=== PATIENT | female | born 1970 | race Caucasian/White ===

== ENCOUNTER 2020-12-08 06:05 | Inpatient (IN) | payer BC ==
[~2020-12-08] VITALS: Ht 157.5 cm; Wt 61.0 kg
[~2020-12-08 06:05] MED LIST: IBUP-1984 PO; ONDA8TAB6 PO; PHEN-786 PO
[2020-12-08 06:41] LABS: URINE HCG NEGATIVE (NEG)
[2020-12-08 06:42] LABS: CLARITY,URINE CLOUDY (Clear); COLOR,URINE YELLOW (Yellow); GLUCOSE, URINE NEGATIVE (Neg); KETONES,URINE NEGATIVE (Neg); LEUKOCYTE ESTERASE ,URINE NEGATIVE (Neg); NITRITES, URINE NEGATIVE (Neg); OCCULT BLOOD,URINE NEGATIVE (Neg); PROTEIN,URINE NEGATIVE (Neg); UROBILINOGEN,URINE 0.2 E.U/dL (0.2-1.0)
[2020-12-08 06:45] LABS: UA COLLECTION TYPE NON-SPECIFIED
[2020-12-08 06:48] LABS: AMORPHOUS URATES 3+; BACTERIA,URINE FEW /HPF (Neg); HYALINE CASTS 0-3 /LPF (NEGATIVE); MUCUS STRANDS NONE SEEN /LPF (Neg); RBC,URINE 0-2 /HPF (0-2); SQUAMOUS EPITHELIAL CELL,UR FEW /LPF (FEW); WBC,URINE 0-4 /HPF (0-4)
[2020-12-08 07:10] LABS: BASOPHILS # (AUTO) 0.2 X10'3 (0-0.2); BASOPHILS % (AUTO) 0.9 % (0-1); EOSINOPHILS % (AUTO) 0.2 % (0-6); HEMATOCRIT 39.9 % (35.0-45.0); HEMOGLOBIN 13.5 g/dl (12.0-16.0); LYMPHOCYTES # (AUTO) 2.4 X10'3 (1.1-4.8); LYMPHOCYTES % (AUTO) 11.7 % (21-51); MEAN CORPUSCULAR HEMOGLOBIN 32.6 PG (27.0-31.0); MEAN CORPUSCULAR HGB CONC 33.9 g/dL (33.0-36.5); MEAN CORPUSCULAR VOLUME 96.3 FL (78-98); MEAN PLATELET VOLUME 8.3 FL (7.4-10.4); MONOCYTES # (AUTO) 1.2 X10'3 (0-0.9); MONOCYTES % (AUTO) 5.8 % (2-12); NEUTROPHILS # (AUTO) 16.3 X10'3 (1.8-7.7); NEUTROPHILS % (AUTO) 81.4 % (42-75); PLATELET COUNT 331 X10'3 (140-440); RED BLOOD COUNT 4.14 X10'6 (4.20-5.60); RED CELL DISTRIBUTION WIDTH 13.2 % (11.5-14.5); WHITE BLOOD COUNT 20.1 X10'3 (4.5-11.0)
[2020-12-08 07:27] LABS: ALANINE AMINOTRANSFERASE 26 U/L (12-78); ALBUMIN 3.5 G/DL (3.4-5.0); ALBUMIN/GLOBULIN RATIO 1.1 (1.1-1.5); ALKALINE PHOSPHATASE 66 IU/L (46-116); ANION GAP 8 (8-16); ASPARTATE AMINO TRANSFERASE 19 U/L (10-37); BILIRUBIN,TOTAL 0.6 MG/DL (0.1-1.0); BLOOD UREA NITROGEN 19 MG/DL (7-18); BUN/CREATININE RATIO 19.6 (6.6-38.0); CALCIUM 8.4 MG/DL (8.5-10.1); CHLORIDE 106 MMOL/L (99-107); CREATININE 0.97 MG/DL (0.40-0.90); GLUCOSE 90 MG/DL (70-104); LIPASE 120 U/L (73-393); POTASSIUM 3.7 MMOL/L (3.5-5.1); SODIUM 140 MMOL/L (135-145); TOTAL CARBON DIOXIDE 25.6 MMOL/L (24-32); TOTAL PROTEIN 6.8 G/DL (6.4-8.2); eGFR 60 ML/MIN
[2020-12-08 07:48] LABS: PLATELET ESTIMATE NORMAL; TOTAL CELLS COUNTED 100
[2020-12-08] MEDS ORDERED: morphine 4 MG/ML inj SYRINge IV ONE ×2 (09:10→09:45)
[2020-12-08] MEDS ORDERED: ondansetron/PF 4mg/2ml inj IV ONE (09:10)
[2020-12-08] MEDS ORDERED: normal saline 1000ML IV soln IVB ONE (09:10)
[2020-12-08] MEDS ORDERED: iohexol 300mg/ml 100ml inj. ONE ×2 (09:15→21:51)
[2020-12-08] MEDS ORDERED: magnesium Cl slow-release 64mg tablet PO PRN (11:05)
[2020-12-08] MEDS ORDERED: potassium Cl 20 mEq SR tablet PO PRN (11:05)
[2020-12-08] MEDS ORDERED: ondansetron/PF 4mg/2ml inj IV PRN (11:05)
[2020-12-08] MEDS ORDERED: magnesium 4gm in 100ml NS 100 ML IV PRN (11:05)
[2020-12-08] MEDS ORDERED: acetaminophen 650mg rectal suppository RC PRN (11:05)
[2020-12-08] MEDS ORDERED: diphenhydrAMINE 25mg capsule PO PRN (11:05)
[2020-12-08] MEDS ORDERED: potassium Cl 40MEQ/1/2NS 520ml 520 ML IV PRN ×2 (11:05)
[2020-12-08] MEDS ORDERED: magnesium hydroxide 30ml (MOM) UD suspension PO PRN (11:05)
[2020-12-08] MEDS ORDERED: magnesium 2GM in 50ml NS 50 ML IV PRN (11:05)
[2020-12-08] MEDS ORDERED: bisacodyl 10mg suppository rectal RC PRN (11:05)
[2020-12-08] MEDS ORDERED: acetaminophen 325mg tablet PO PRN ×2 (11:05)
[2020-12-08] MEDS ORDERED: mag hydrox/Alum hydrox/simeth 30ml oral suspension PO PRN (11:05)
[2020-12-08] MEDS ORDERED: ATOR10TA70 PO (11:32)
[2020-12-08] MEDS ORDERED: VALA500T41 PO (11:32)
[2020-12-08] MEDS ORDERED: GABA-530 PO ×2 (11:32)
[2020-12-08] MEDS: normal saline 1000ml 1,000 ML IV SCH ×2 (12:23→21:31)
[2020-12-08 12:30] VITALS: BP 121/56
--- NOTE | 2020-12-08 12:30 | NUR ---
Patient in room [facility]. I have received report from [facility] and had the opportunity to ask questions and assume patient care.
[2020-12-08] MEDS ORDERED: GABA300C PO ×2 (15:03)
[2020-12-08] MEDS: piperacillin/tazo 3.375gm/50ml 50 ML IV SCH (16:47)
[2020-12-08] MEDS: HYDROcodone/acetaminophen 10/325mg tab PO PRN (17:37)
[2020-12-08 18:00] VITALS: BP 98/47
--- NOTE | 2020-12-08 18:16 | NUR ---
Patient in room [facility] 349A. I have received report from LYNN Hebert and had the opportunity to ask questions and assume patient care.
--- NOTE | 2020-12-08 18:31 | NUR ---
Problems reprioritized. Patient report given, questions answered & plan of care reviewed with Shantal BAILEY.
[2020-12-08] MEDS: morphine 2 MG/ML inj. syringe IV PRN (19:29)
[2020-12-08] MEDS: heparin, porcine 5000 units/ml vial SQ SCH (19:37)
[2020-12-08] MEDS: K and/or MAG REPLACEMENT MC SCH (20:00)
[2020-12-08] MEDS ORDERED: piperacillin/tazo 4.5gm/100ml 100 ML IV SCH (20:00)
[2020-12-08] MEDS: gabapentin 300mg capsule PO SCH (21:30)
[2020-12-08] MEDS: HYDROmorphone 1 mg/ml syringe IV PRN (22:21)
[2020-12-08 23:20] VITALS: BP 93/44
[2020-12-08] MEDS ORDERED: LACTED IV ONE (23:25)
[2020-12-08] MEDS ORDERED: RINGERS IV ONE (23:25)
[2020-12-08] MEDS ORDERED: ringers solution, lacted 1,000 ML IV ONE (23:50)
[2020-12-09] MEDS: piperacillin/tazo 3.375gm/50ml 50 ML IV SCH ×3 (00:15→16:20)
[2020-12-09 00:30] VITALS: BP 118/68
[2020-12-09] MEDS: HYDROmorphone 1 mg/ml syringe IV PRN (04:23)
[2020-12-09 05:44] LABS: BASOPHILS # (AUTO) 0.1 X10'3 (0-0.2); BASOPHILS % (AUTO) 0.3 % (0-1); EOSINOPHILS % (AUTO) 0 % (0-6); HEMATOCRIT 38.1 % (35.0-45.0); HEMOGLOBIN 12.9 g/dl (12.0-16.0); LYMPHOCYTES # (AUTO) 1.8 X10'3 (1.1-4.8); LYMPHOCYTES % (AUTO) 10.5 % (21-51); MEAN CORPUSCULAR HEMOGLOBIN 32.4 PG (27.0-31.0); MEAN CORPUSCULAR HGB CONC 33.7 g/dL (33.0-36.5); MEAN PLATELET VOLUME 7.6 FL (7.4-10.4); MONOCYTES # (AUTO) 1.2 X10'3 (0-0.9); NEUTROPHILS # (AUTO) 14.2 X10'3 (1.8-7.7); NEUTROPHILS % (AUTO) 82.2 % (42-75); PLATELET COUNT 270 X10'3 (140-440); RED BLOOD COUNT 3.97 X10'6 (4.20-5.60); WHITE BLOOD COUNT 17.3 X10'3 (4.5-11.0)
[2020-12-09 05:59] LABS: ALANINE AMINOTRANSFERASE 19 U/L (12-78); ALBUMIN 2.7 G/DL (3.4-5.0); ALBUMIN/GLOBULIN RATIO 0.8 (1.1-1.5); ALKALINE PHOSPHATASE 57 IU/L (46-116); ANION GAP 9 (8-16); ASPARTATE AMINO TRANSFERASE 10 U/L (10-37); BILIRUBIN,TOTAL 1.3 MG/DL (0.1-1.0); BLOOD UREA NITROGEN 11 MG/DL (7-18); CALCIUM 7.8 MG/DL (8.5-10.1); CHLORIDE 103 MMOL/L (99-107); CHOL/HDL RATIO 1.5 (0.00-4.99); CHOLESTEROL 128 MG/DL (0-200); CREATININE 0.92 MG/DL (0.40-0.90); GLUCOSE 84 MG/DL (70-104); HDL CHOLESTEROL 83 MG/DL (35-60); LDL CHOLESTEROL 33 MG/DL (50-100); MAGNESIUM 1.5 MG/DL (1.5-2.4); PHOSPHORUS 2.6 MG/DL (2.3-4.5); POTASSIUM 3.5 MMOL/L (3.5-5.1); SODIUM 134 MMOL/L (135-145); TOTAL CARBON DIOXIDE 21.6 MMOL/L (24-32); TOTAL PROTEIN 5.9 G/DL (6.4-8.2); TRIGLYCERIDES 31 MG/DL (20-135); eGFR 64 ML/MIN
--- NOTE | 2020-12-09 06:43 | NUR ---
Patient in room [facility] 344. I have received report from Shantal BAILEY and had the opportunity to ask questions and assume patient care.
[2020-12-09] MEDS: heparin, porcine 5000 units/ml vial SQ SCH ×2 (07:24→20:30)
[2020-12-09] MEDS: valacyclovir 500mg tablet PO SCH (07:44)
[2020-12-09] MEDS: atorvastatin 10mg tablet PO SCH (07:44)
[2020-12-09] MEDS: gabapentin 300mg capsule PO SCH ×2 (07:44→20:29)
[2020-12-09] MEDS: normal saline 1000ml 1,000 ML IV SCH ×3 (07:47→20:24)
[2020-12-09 08:00] VITALS: BP 100/38
[2020-12-09] MEDS: K and/or MAG REPLACEMENT MC SCH ×2 (08:00→20:00)
[2020-12-09 11:00] VITALS: BP 121/61
[2020-12-09] MEDS: morphine 2 MG/ML inj. syringe IV PRN (14:18)
--- NOTE | 2020-12-09 17:31 | NUR ---
PAGER ID: [phone] MESSAGE: Julián Surg [id number] Re: 349a Walker, patient currently has a fever of 101.5, I treated with Tylenol. Just wanted to inform you of the change. thanks Julián.
[2020-12-09] MEDS ORDERED: pantoprazole 40 MG vial IV ONE (17:50)
--- NOTE | 2020-12-09 18:34 | NUR ---
Problems reprioritized. Patient report given, questions answered & plan of care reviewed with Nicole BAILEY.
--- NOTE | 2020-12-09 18:34 | NUR ---
Problems reprioritized. Patient report given, questions answered & plan of care reviewed with Nicole BAILEY.
--- NOTE | 2020-12-09 18:36 | NUR ---
I have received report from Julián BAILEY and had the opportunity to ask questions and assume patient care.
[2020-12-09 19:00] VITALS: BP 100/47
[2020-12-09] MEDS ORDERED: heparin, porcine 5000 units/ml vial SQ SCH (20:00)
[2020-12-10] VITALS: BP 115/51
[2020-12-10] MEDS: piperacillin/tazo 3.375gm/50ml 50 ML IV SCH ×3 (00:12→17:07)
[2020-12-10] MEDS: morphine 2 MG/ML inj. syringe IV PRN ×3 (00:13→17:07)
[2020-12-10] MEDS: normal saline 1000ml 1,000 ML IV SCH ×2 (03:31→14:45)
[2020-12-10 05:58] LABS: BASOPHILS % (AUTO) 0.2 % (0-1); EOSINOPHILS % (AUTO) 0.1 % (0-6); HEMATOCRIT 35.8 % (35.0-45.0); HEMOGLOBIN 12.1 g/dl (12.0-16.0); LYMPHOCYTES # (AUTO) 1.7 X10'3 (1.1-4.8); LYMPHOCYTES % (AUTO) 11.5 % (21-51); MEAN CORPUSCULAR HEMOGLOBIN 32.3 PG (27.0-31.0); MEAN CORPUSCULAR HGB CONC 33.8 g/dL (33.0-36.5); MEAN CORPUSCULAR VOLUME 95.7 FL (78-98); MEAN PLATELET VOLUME 8.1 FL (7.4-10.4); MONOCYTES # (AUTO) 1.4 X10'3 (0-0.9); MONOCYTES % (AUTO) 8.9 % (2-12); NEUTROPHILS % (AUTO) 79.3 % (42-75); PLATELET COUNT 270 X10'3 (140-440); RED BLOOD COUNT 3.74 X10'6 (4.20-5.60); WHITE BLOOD COUNT 15.1 X10'3 (4.5-11.0)
[2020-12-10 06:14] LABS: ALANINE AMINOTRANSFERASE 12 U/L (12-78); ALBUMIN 2.4 G/DL (3.4-5.0); ALBUMIN/GLOBULIN RATIO 0.7 (1.1-1.5); ALKALINE PHOSPHATASE 58 IU/L (46-116); ANION GAP 11 (8-16); ASPARTATE AMINO TRANSFERASE 8 U/L (10-37); BILIRUBIN,TOTAL 1.1 MG/DL (0.1-1.0); BLOOD UREA NITROGEN 7 MG/DL (7-18); BUN/CREATININE RATIO 7.8 (6.6-38.0); CALCIUM 7.8 MG/DL (8.5-10.1); CHLORIDE 107 MMOL/L (99-107); GLUCOSE 98 MG/DL (70-104); MAGNESIUM 1.7 MG/DL (1.5-2.4); PHOSPHORUS 2.2 MG/DL (2.3-4.5); POTASSIUM 3.4 MMOL/L (3.5-5.1); SODIUM 141 MMOL/L (135-145); TOTAL CARBON DIOXIDE 22.8 MMOL/L (24-32); TOTAL PROTEIN 5.9 G/DL (6.4-8.2); eGFR 66 ML/MIN
--- NOTE | 2020-12-10 06:28 | NUR ---
Problems reprioritized. Patient report given, questions answered & plan of care reviewed with Shawna BAILEY.
--- NOTE | 2020-12-10 06:33 | NUR ---
Patient in room [facility] 349. I have received report from Nicole BAILEY and had the opportunity to ask questions and assume patient care.
[2020-12-10 07:00] VITALS: BP 107/53
[2020-12-10] MEDS: pantoprazole 40 MG vial IV SCH (07:41)
[2020-12-10] MEDS: atorvastatin 10mg tablet PO SCH (07:46)
[2020-12-10] MEDS: valacyclovir 500mg tablet PO SCH (07:46)
[2020-12-10] MEDS: gabapentin 300mg capsule PO SCH ×2 (07:46→20:09)
[2020-12-10] MEDS: heparin, porcine 5000 units/ml vial SQ SCH ×2 (07:47→19:52)
[2020-12-10] MEDS: K and/or MAG REPLACEMENT MC SCH ×2 (08:00→20:00)
[2020-12-10 11:00] VITALS: BP 123/71
[2020-12-10 18:00] VITALS: BP 123/65
--- NOTE | 2020-12-10 18:00 | NUR ---
Patient in room [facility] 352. I have received report from LYNN Jimenez and had the opportunity to ask questions and assume patient care.
--- NOTE | 2020-12-10 19:07 | NUR ---
Problems reprioritized. Patient report given, questions answered & plan of care reviewed with Marina BAILEY.
[2020-12-10] MEDS: lactobacillus rhamnosus 10,000 MMU CELLS/CAPSULE PO SCH (19:52)
[2020-12-10] MEDS: potassium Cl 20 mEq SR tablet PO PRN (19:53)
[2020-12-11] MEDS: normal saline 1000ml 1,000 ML IV SCH ×3 (00:12→22:18)
[2020-12-11] MEDS: piperacillin/tazo 3.375gm/50ml 50 ML IV SCH ×3 (00:12→17:08)
[2020-12-11] MEDS: potassium Cl 20 mEq SR tablet PO PRN ×2 (00:12→04:19)
[2020-12-11 00:54] VITALS: BP 129/78
[2020-12-11 06:14] LABS: ALANINE AMINOTRANSFERASE 14 U/L (12-78); ALBUMIN 2.2 G/DL (3.4-5.0); ALBUMIN/GLOBULIN RATIO 0.6 (1.1-1.5); ALKALINE PHOSPHATASE 56 IU/L (46-116); ANION GAP 8 (8-16); ASPARTATE AMINO TRANSFERASE 7 U/L (10-37); BASOPHILS % (AUTO) 0.5 % (0-1); BILIRUBIN,TOTAL 0.6 MG/DL (0.1-1.0); BLOOD UREA NITROGEN 6 MG/DL (7-18); BUN/CREATININE RATIO 6.8 (6.6-38.0); CALCIUM 8.1 MG/DL (8.5-10.1); CHLORIDE 109 MMOL/L (99-107); CREATININE 0.88 MG/DL (0.40-0.90); EOSINOPHILS # (AUTO) 0.1 X10'3 (0-0.9); EOSINOPHILS % (AUTO) 0.6 % (0-6); GLUCOSE 101 MG/DL (70-104); HEMATOCRIT 34.5 % (35.0-45.0); HEMOGLOBIN 11.8 g/dl (12.0-16.0); LYMPHOCYTES # (AUTO) 2.1 X10'3 (1.1-4.8); LYMPHOCYTES % (AUTO) 20.6 % (21-51); MAGNESIUM 1.9 MG/DL (1.5-2.4); MEAN CORPUSCULAR HEMOGLOBIN 32.5 PG (27.0-31.0); MEAN CORPUSCULAR HGB CONC 34.4 g/dL (33.0-36.5); MEAN CORPUSCULAR VOLUME 94.6 FL (78-98); MEAN PLATELET VOLUME 8.1 FL (7.4-10.4); MONOCYTES % (AUTO) 10.1 % (2-12); NEUTROPHILS # (AUTO) 6.9 X10'3 (1.8-7.7); NEUTROPHILS % (AUTO) 68.2 % (42-75); PHOSPHORUS 2.1 MG/DL (2.3-4.5); PLATELET COUNT 278 X10'3 (140-440); POTASSIUM 4.4 MMOL/L (3.5-5.1); RED BLOOD COUNT 3.64 X10'6 (4.20-5.60); RED CELL DISTRIBUTION WIDTH 12.9 % (11.5-14.5); SODIUM 143 MMOL/L (135-145); TOTAL CARBON DIOXIDE 25.6 MMOL/L (24-32); TOTAL PROTEIN 5.8 G/DL (6.4-8.2); WHITE BLOOD COUNT 10.1 X10'3 (4.5-11.0); eGFR 67 ML/MIN
--- NOTE | 2020-12-11 06:30 | NUR ---
Patient in room [facility] 349. I have received report from Kristian Archer and had the opportunity to ask questions and assume patient care.
--- NOTE | 2020-12-11 06:30 | NUR ---
Problems reprioritized. Patient report given, questions answered & plan of care reviewed with Lia BAILEY.
--- NOTE | 2020-12-11 06:33 | NUR ---
Problems reprioritized. Patient report given, questions answered & plan of care reviewed with LYNN Fitzgerald.
[2020-12-11] MEDS: morphine 2 MG/ML inj. syringe IV PRN ×2 (07:35→12:04)
[2020-12-11] MEDS: pantoprazole 40 MG vial IV SCH (07:36)
[2020-12-11 08:00] VITALS: BP 138/78
[2020-12-11] MEDS: K and/or MAG REPLACEMENT MC SCH ×2 (08:00→20:00)
[2020-12-11] MEDS: valacyclovir 500mg tablet PO SCH (09:05)
[2020-12-11] MEDS: lactobacillus rhamnosus 10,000 MMU CELLS/CAPSULE PO SCH ×2 (09:05→20:16)
[2020-12-11] MEDS: atorvastatin 10mg tablet PO SCH (09:05)
[2020-12-11] MEDS: heparin, porcine 5000 units/ml vial SQ SCH ×2 (09:05→20:18)
[2020-12-11] MEDS: gabapentin 300mg capsule PO SCH ×2 (09:06→20:17)
[2020-12-11 11:00] VITALS: BP 106/66
--- NOTE | 2020-12-11 18:35 | NUR ---
Problems reprioritized. Patient report given, questions answered & plan of care reviewed with LYNN Mosqueda.
[2020-12-11 20:00] VITALS: BP 108/61
[2020-12-11] MEDS: HYDROcodone/acetaminophen 5mg/325mg tablet PO PRN (20:25)
[2020-12-12] VITALS: BP 105/51
[2020-12-12] MEDS: piperacillin/tazo 3.375gm/50ml 50 ML IV SCH ×2 (00:10→09:07)
[2020-12-12] MEDS: HYDROcodone/acetaminophen 10/325mg tab PO PRN (03:24)
--- NOTE | 2020-12-12 03:28 | NUR ---
Pt requests advance to regular diet. Has tolerated full liquids well and is passing flatus and states bowel movements that were liquid at first have more consistency.
[2020-12-12] MEDS: normal saline 1000ml 1,000 ML IV SCH (05:18)
[2020-12-12 06:08] LABS: BASOPHILS # (AUTO) 0.1 X10'3 (0-0.2); BASOPHILS % (AUTO) 0.8 % (0-1); EOSINOPHILS # (AUTO) 0.2 X10'3 (0-0.9); EOSINOPHILS % (AUTO) 2.3 % (0-6); HEMATOCRIT 33.3 % (35.0-45.0); HEMOGLOBIN 11.3 g/dl (12.0-16.0); LYMPHOCYTES # (AUTO) 2.3 X10'3 (1.1-4.8); LYMPHOCYTES % (AUTO) 32.9 % (21-51); MEAN CORPUSCULAR HEMOGLOBIN 32.6 PG (27.0-31.0); MEAN CORPUSCULAR HGB CONC 33.9 g/dL (33.0-36.5); MEAN PLATELET VOLUME 8.2 FL (7.4-10.4); MONOCYTES # (AUTO) 0.9 X10'3 (0-0.9); MONOCYTES % (AUTO) 12.4 % (2-12); NEUTROPHILS # (AUTO) 3.6 X10'3 (1.8-7.7); NEUTROPHILS % (AUTO) 51.6 % (42-75); PLATELET COUNT 288 X10'3 (140-440); RED BLOOD COUNT 3.47 X10'6 (4.20-5.60); RED CELL DISTRIBUTION WIDTH 12.9 % (11.5-14.5); WHITE BLOOD COUNT 6.9 X10'3 (4.5-11.0)
[2020-12-12 06:33] LABS: ALANINE AMINOTRANSFERASE 17 U/L (12-78); ALBUMIN 2.2 G/DL (3.4-5.0); ALBUMIN/GLOBULIN RATIO 0.6 (1.1-1.5); ALKALINE PHOSPHATASE 54 IU/L (46-116); ANION GAP 7 (8-16); ASPARTATE AMINO TRANSFERASE 8 U/L (10-37); BILIRUBIN,TOTAL 0.2 MG/DL (0.1-1.0); BLOOD UREA NITROGEN 7 MG/DL (7-18); BUN/CREATININE RATIO 7.3 (6.6-38.0); CALCIUM 8.5 MG/DL (8.5-10.1); CHLORIDE 109 MMOL/L (99-107); CREATININE 0.96 MG/DL (0.40-0.90); GLUCOSE 100 MG/DL (70-104); MAGNESIUM 1.6 MG/DL (1.5-2.4); PHOSPHORUS 4.4 MG/DL (2.3-4.5); POTASSIUM 4.3 MMOL/L (3.5-5.1); SODIUM 144 MMOL/L (135-145); TOTAL CARBON DIOXIDE 27.8 MMOL/L (24-32); TOTAL PROTEIN 5.8 G/DL (6.4-8.2); eGFR 61 ML/MIN
[2020-12-12 06:44] VITALS: BP 112/53
[2020-12-12] MEDS ORDERED: pantoprazole 40mg Tablet.DR PO SCH (07:30)
[2020-12-12] MEDS ORDERED: LEVO500T89 PO (07:46)
[2020-12-12] MEDS ORDERED: METR-159 PO (07:49)
[2020-12-12] MEDS: K and/or MAG REPLACEMENT MC SCH (08:00)
[2020-12-12] MEDS: valacyclovir 500mg tablet PO SCH (09:05)
[2020-12-12] MEDS: atorvastatin 10mg tablet PO SCH (09:05)
[2020-12-12] MEDS: HYDROcodone/acetaminophen 5mg/325mg tablet PO PRN (09:05)
[2020-12-12] MEDS: gabapentin 300mg capsule PO SCH (09:06)
[2020-12-12] MEDS: heparin, porcine 5000 units/ml vial SQ SCH (09:06)
[2020-12-12] MEDS: lactobacillus rhamnosus 10,000 MMU CELLS/CAPSULE PO SCH (09:06)
[2020-12-12 11:00] VITALS: BP 107/70
--- NOTE | 2020-12-12 11:15 | NUR ---
Initial: Pt presented with c/o abdominal pain and admitted for ascending diverticulitis with possible abscess. Pt initially NPO then on a clear liquid diet documented with 75-100% PO intake. Diet has just been advanced to regular, pending documentation of PO intake for first solid meal. LBM 12/11, documented with diarrhea. Will continue to follow and make recommendations as appropriate pending trends in PO intake with diet advancement. Recommendations: 1) Diet change to low fiber with MD approval in view of diverticulitis 2) Bowel care per rx 3) Scaled weight this admit; weekly scaled weights thereafter Addendum: 12/12/20 at [address] Amended: Links added.
--- NOTE | 2020-12-12 14:30 | NUR ---
Patient discharge instructions reviewed with patient and patient verbalized understanding. Patients IV dc'd cannula intact. Patient states she has all her belongings and patient is aware she needs to follow up with Dr Mesa in one week and once infection is cleared she will need to follow up with a colonoscopy
== END 2020-12-12 14:24 | disposition home or self-care (01) | DRG 391 ==
LOC: ER 06:06 → ED HOLD 11:02 → SUR 3N 12:08
PROVIDERS: ADMIT Family Medicine; ATTEND Family Medicine
PROC: BW211ZZ Computerized Tomography (CT Scan) of Abdomen and Pelvis using Low Osmolar Contrast (ICD-10-PCS; principal; 2020-12-08)
DX: K57.20 Diverticulitis of large intestine with perforation and abscess without bleeding (principal); K65.9 Peritonitis, unspecified; E78.5 Hyperlipidemia, unspecified; F17.200 Nicotine dependence, unspecified, uncomplicated; Z66 Do not resuscitate; G62.9 Polyneuropathy, unspecified; I10 Essential (primary) hypertension; Z90.710 Acquired absence of both cervix and uterus; Z79.899 Other long term (current) drug therapy
CPT/HCPCS: 36415; 71045; 74177; 80053; 80061; 81001; 81025; 83036; 83605; 83690; 83735; 84100; 84145; 85007; 85025; 86885; 86900; 86901; 87040; 87081; 96361; 96375; 99285; C9113; G0378; J1170; J1644; J2270; J2405; J2543; J7030; J7120; Q9967

== ENCOUNTER 2021-02-05 23:36 | Emergency (ER) | payer BC ==
[~2021-02-05] VITALS: Ht 157.5 cm; Wt 59.1 kg
[~2021-02-05 23:36] MED LIST changes: +ATOR10TA70 PO; +GABA300C PO; -IBUP-1984 PO; -ONDA8TAB6 PO; -PHEN-786 PO; +VALA500T41 PO
[2021-02-05 23:44] VITALS: BP 136/82
[2021-02-06] MEDS ORDERED: acetaminophen 325mg tablet PO ONE (01:40)
[2021-02-06] MEDS ORDERED: orphenadrine citrate 60mg/2ml inj. IM ONE (01:40)
[2021-02-06] MEDS ORDERED: ketorolac trometh inj. 60 MG/2 ML VIAL IM ONE (01:40)
[2021-02-06] MEDS ORDERED: HYDROcodone/acetaminophen 5mg/325mg tablet PO ONE (01:40)
[2021-02-06] MEDS ORDERED: ACET-2615 PO (01:45)
[2021-02-06] MEDS ORDERED: IBUP-1985 PO (01:45)
[2021-02-06] MEDS ORDERED: CYCL-1 PO (01:45)
== END 2021-02-06 02:01 | disposition home or self-care (01) ==
LOC: ER 23:37
DX: M54.2 Cervicalgia (principal); Z79.899 Other long term (current) drug therapy
CPT/HCPCS: 96372; 99284; J1885; J2360

== ENCOUNTER 2023-10-21 09:47 | Inpatient (IN) | payer BC ==
[~2023-10-21] VITALS: Ht 157.5 cm; Wt 73.0 kg
[~2023-10-21 09:47] MED LIST changes: +CYCL-1 PO; +IBUP-1985 PO
[2023-10-21 10:55] LABS: BASOPHILS # (AUTO) 0.1 X10'3 (0-0.2); BASOPHILS % (AUTO) 1.3 % (0-1); EOSINOPHILS # (AUTO) 0.1 X10'3 (0-0.9); EOSINOPHILS % (AUTO) 0.6 % (0-6); HEMATOCRIT 43.3 % (35.0-45.0); HEMOGLOBIN 14.3 g/dl (12.0-16.0); LYMPHOCYTES # (AUTO) 2.2 X10'3 (1.1-4.8); LYMPHOCYTES % (AUTO) 20.7 % (21-51); MEAN CORPUSCULAR HEMOGLOBIN 30.5 PG (27.0-31.0); MEAN CORPUSCULAR HGB CONC 33.1 g/dL (33.0-36.5); MEAN CORPUSCULAR VOLUME 92.3 FL (78-98); MEAN PLATELET VOLUME 8.5 FL (7.4-10.4); MONOCYTES # (AUTO) 0.8 X10'3 (0-0.9); MONOCYTES % (AUTO) 7.4 % (2-12); NEUTROPHILS # (AUTO) 7.3 X10'3 (1.8-7.7); PLATELET COUNT 247 X10'3 (140-440); RED CELL DISTRIBUTION WIDTH 13.6 % (11.5-14.5); WHITE BLOOD COUNT 10.4 X10'3 (4.5-11.0)
[2023-10-21 11:17] LABS: ALBUMIN 2.7 G/DL (3.4-5.0); ANION GAP 9 (8-16); BLOOD UREA NITROGEN 12 MG/DL (7-18); BUN/CREATININE RATIO 10.7 (10.0-20.0); CALCIUM 8.3 MG/DL (8.5-10.1); CHLORIDE 109 MMOL/L (99-107); CREATININE 1.12 MG/DL (0.40-0.90); GLUCOSE 138 MG/DL (70-104); POTASSIUM 4.2 MMOL/L (3.5-5.1); PRO BRAIN NATRIURETIC PEPTIDE 12241 PG/ML (0-125); SODIUM 143 MMOL/L (135-145); TOTAL CARBON DIOXIDE 25.1 MMOL/L (24-32); eCRCL 45 ML/MIN; eGFR 51 ML/MIN
[2023-10-21] MEDS ORDERED: iohexol 350MG/ML 100ml bottle IV ONE (13:10)
[2023-10-21] MEDS: normal saline 1000ML IV soln IVB ONE (13:34)
[2023-10-21] MEDS ORDERED: heparin 25,000 UNIT/250ml bag 250 ML IV PRN ×2 (14:00→15:10)
[2023-10-21] MEDS: LORazepam 2 mg/ml vial IV ONE (14:25)
[2023-10-21] MEDS ORDERED: NO HOME MEDS (14:34)
[2023-10-21] MEDS: heparin 10,000 units/1 ML INJ IV ONE (14:46)
[2023-10-21] MEDS: heparin 25,000 UNIT/250ml bag 250 ML IV PRN (14:48)
[2023-10-21] MEDS: MESSAGE TO NURSING IV ONE ×3 (14:48→22:40)
[2023-10-21] MEDS ORDERED: HYDROcodone/acetaminophen 5mg/325mg tablet PO PRN (15:05)
[2023-10-21] MEDS ORDERED: ondansetron/PF 4mg/2ml inj IV PRN (15:05)
[2023-10-21] MEDS ORDERED: potassium Cl 40MEQ/1/2NS 520ml 520 ML IV PRN (15:05)
[2023-10-21] MEDS ORDERED: acetaminophen 325mg tablet PO PRN ×2 (15:05)
[2023-10-21] MEDS ORDERED: morphine 2 MG/ML inj. syringe IV PRN ×2 (15:05→15:45)
[2023-10-21] MEDS ORDERED: magnesium 4gm in 100ml NS 100 ML IV PRN (15:05)
[2023-10-21] MEDS ORDERED: potassium Cl 20 mEq SR tablet PO PRN ×2 (15:05)
[2023-10-21] MEDS ORDERED: magnesium Cl slow-release 64mg tablet PO PRN (15:05)
[2023-10-21] MEDS ORDERED: magnesium 2GM in 50ml NS 50 ML IV PRN (15:05)
[2023-10-21] MEDS ORDERED: heparin 10,000 units/1 ML INJ IV PRN (15:10)
[2023-10-21] MEDS: normal saline 1000ml 1,000 ML IV SCH (16:02)
[2023-10-21 17:37] LABS: URINE AMPHETAMINE SCREEN NEGATIVE (Neg); URINE BARBITUATE SCREEN NEGATIVE (Neg); URINE BENZODIAZEPINES SCREEN NEGATIVE (Neg); URINE CANNABINOID SCREEN POSITIVE (Neg); URINE COCAINE SCREEN NEGATIVE (Neg); URINE METHADONE SCREEN NEGATIVE (Neg); URINE OPIATE SCREEN NEGATIVE (Neg); URINE PHENCYCLIDINE SCREEN NEGATIVE (Neg)
[2023-10-21 18:00] VITALS: BP 160/101; PULSE 114; RESP 16; TEMP 98.4; O2SAT 99
[2023-10-21] MEDS: carVEDilol 3.125mg tablet PO SCH (19:34)
[2023-10-21] MEDS: ALPRAZolam 0.25mg tablet PO PRN (19:34)
[2023-10-21 20:00] VITALS: RESP 16; O2SAT 99
[2023-10-21] MEDS: morphine 2 MG/ML inj. syringe IV PRN (20:27)
[2023-10-21 22:00] VITALS: BP 129/85; PULSE 83; RESP 22; TEMP 97.8; O2SAT 91
[2023-10-21] MEDS: diazepam 5mg tablet PO ONE (23:32)
[2023-10-21] MEDS: HYDROcodone/acetaminophen 10/325mg tab PO PRN (23:34)
[2023-10-22] VITALS (9 sets, daily range): BP systolic 124–128; BP diastolic 63–92; PULSE 69–102; RESP 12–19; TEMP 97.2–98.6; O2SAT 93–98
[2023-10-22 07:42] LABS: BASOPHILS # (AUTO) 0.1 X10'3 (0-0.2); BASOPHILS % (AUTO) 0.6 % (0-1); EOSINOPHILS # (AUTO) 0.2 X10'3 (0-0.9); EOSINOPHILS % (AUTO) 1.7 % (0-6); HEMATOCRIT 48.8 % (35.0-45.0); HEMOGLOBIN 15.6 g/dl (12.0-16.0); LYMPHOCYTES # (AUTO) 3.1 X10'3 (1.1-4.8); MEAN CORPUSCULAR HEMOGLOBIN 29.7 PG (27.0-31.0); MEAN CORPUSCULAR VOLUME 92.8 FL (78-98); MEAN PLATELET VOLUME 9.2 FL (7.4-10.4); NEUTROPHILS # (AUTO) 7.1 X10'3 (1.8-7.7); NEUTROPHILS % (AUTO) 61.7 % (42-75); PLATELET COUNT 277 X10'3 (140-440); RED BLOOD COUNT 5.26 X10'6 (4.20-5.60); RED CELL DISTRIBUTION WIDTH 13.6 % (11.5-14.5); WHITE BLOOD COUNT 11.6 X10'3 (4.5-11.0)
[2023-10-22 08:01] LABS: ALANINE AMINOTRANSFERASE 100 U/L (12-78); ALBUMIN 2.8 G/DL (3.4-5.0); ALBUMIN/GLOBULIN RATIO 0.8 (1.1-1.5); ALKALINE PHOSPHATASE 138 IU/L (46-116); ANION GAP 7 (8-16); ASPARTATE AMINO TRANSFERASE 46 U/L (10-37); BILIRUBIN,TOTAL 1.1 MG/DL (0.1-1.0); BLOOD UREA NITROGEN 10 MG/DL (7-18); BUN/CREATININE RATIO 10.6 (10.0-20.0); CALCIUM 8.4 MG/DL (8.5-10.1); CHLORIDE 106 MMOL/L (99-107); CREATININE 0.94 MG/DL (0.40-0.90); GLUCOSE 130 MG/DL (70-104); POTASSIUM 4.1 MMOL/L (3.5-5.1); SODIUM 142 MMOL/L (135-145); TOTAL CARBON DIOXIDE 28.7 MMOL/L (24-32); TOTAL PROTEIN 6.3 G/DL (6.4-8.2); eCRCL 53 ML/MIN; eGFR 62 ML/MIN
[2023-10-22] MEDS: lisinopril 5mg tablet PO SCH (08:22)
[2023-10-22] MEDS: MESSAGE TO NURSING IV ONE ×4 (09:06→22:23)
[2023-10-22] MEDS: heparin 10,000 units/1 ML INJ IV PRN (10:46)
[2023-10-22 21:14] LABS: APTT 34 SECONDS (22-32)
[2023-10-23] VITALS (8 sets, daily range): BP systolic 103–130; BP diastolic 55–96; PULSE 63–90; RESP 14–20; TEMP 97.5–98.4; O2SAT 96–98
[2023-10-23 05:39] LABS: BASOPHILS # (AUTO) 0.1 X10'3 (0-0.2); BASOPHILS % (AUTO) 0.9 % (0-1); EOSINOPHILS # (AUTO) 0.3 X10'3 (0-0.9); EOSINOPHILS % (AUTO) 3.4 % (0-6); HEMATOCRIT 44.3 % (35.0-45.0); HEMOGLOBIN 14.8 g/dl (12.0-16.0); LYMPHOCYTES # (AUTO) 3.7 X10'3 (1.1-4.8); LYMPHOCYTES % (AUTO) 38.1 % (21-51); MEAN CORPUSCULAR HEMOGLOBIN 30.6 PG (27.0-31.0); MEAN CORPUSCULAR HGB CONC 33.3 g/dL (33.0-36.5); MEAN CORPUSCULAR VOLUME 91.8 FL (78-98); MEAN PLATELET VOLUME 8.9 FL (7.4-10.4); NEUTROPHILS # (AUTO) 4.6 X10'3 (1.8-7.7); NEUTROPHILS % (AUTO) 47.6 % (42-75); PLATELET COUNT 254 X10'3 (140-440); RED BLOOD COUNT 4.83 X10'6 (4.20-5.60); RED CELL DISTRIBUTION WIDTH 13.4 % (11.5-14.5); WHITE BLOOD COUNT 9.7 X10'3 (4.5-11.0)
[2023-10-23 06:11] LABS: ALANINE AMINOTRANSFERASE 77 U/L (12-78); ALBUMIN 2.5 G/DL (3.4-5.0); ALBUMIN/GLOBULIN RATIO 0.8 (1.1-1.5); ALKALINE PHOSPHATASE 107 IU/L (46-116); ANION GAP 8 (8-16); ASPARTATE AMINO TRANSFERASE 32 U/L (10-37); BLOOD UREA NITROGEN 9 MG/DL (7-18); BUN/CREATININE RATIO 9.7 (10.0-20.0); CALCIUM 8.5 MG/DL (8.5-10.1); CHLORIDE 106 MMOL/L (99-107); CHOL/HDL RATIO 3.8 (0.00-4.99); CHOLESTEROL 165 MG/DL (0-200); CREATININE 0.93 MG/DL (0.40-0.90); GLUCOSE 108 MG/DL (70-104); HDL CHOLESTEROL 43 MG/DL (35-60); LDL CHOLESTEROL 106 MG/DL (50-100); POTASSIUM 4.1 MMOL/L (3.5-5.1); SODIUM 141 MMOL/L (135-145); THYROID STIMULATING HORMONE 3.47 ulU/ml (0.34-4.50); TOTAL CARBON DIOXIDE 26.9 MMOL/L (24-32); TOTAL PROTEIN 5.7 G/DL (6.4-8.2); TRIGLYCERIDES 88 MG/DL (20-135); eCRCL 54 ML/MIN; eGFR 63 ML/MIN
[2023-10-23 06:34] LABS: HEMOGLOBIN A1C 6.5 % (4.5-6.2)
[2023-10-23] MEDS: MESSAGE TO NURSING IV ONE ×3 (06:40→19:56)
[2023-10-23] MEDS ORDERED: lisinopril 5mg tablet PO SCH (08:00)
[2023-10-23] MEDS: HYDROcodone/acetaminophen 5mg/325mg tablet PO PRN (08:30)
[2023-10-23] MEDS: pantoprazole 40mg Tablet.DR PO SCH (08:30)
[2023-10-23] MEDS ORDERED: sacubitril/valsartan 24mg-26mg tablet PO SCH (09:15)
[2023-10-23 12:13] LABS: APTT 54 SECONDS (22-32)
[2023-10-23] MEDS: atorvastatin 20mg tablet PO SCH (17:20)
[2023-10-23 18:41] LABS: APTT 73 SECONDS (22-32)
[2023-10-23] MEDS: sacubitril/valsartan 24mg-26mg tablet PO SCH (20:13)
[2023-10-24 02:00] VITALS: BP 97/57; PULSE 77; RESP 17; TEMP 97.7; O2SAT 94
[2023-10-24] MEDS: MESSAGE TO NURSING IV ONE (02:09)
[2023-10-24 05:46] LABS: BASOPHILS % (AUTO) 0.6 % (0-1); EOSINOPHILS # (AUTO) 0.3 X10'3 (0-0.9); EOSINOPHILS % (AUTO) 3.7 % (0-6); HEMATOCRIT 45.3 % (35.0-45.0); HEMOGLOBIN 15.1 g/dl (12.0-16.0); LYMPHOCYTES # (AUTO) 2.9 X10'3 (1.1-4.8); LYMPHOCYTES % (AUTO) 37.9 % (21-51); MEAN CORPUSCULAR HEMOGLOBIN 30.4 PG (27.0-31.0); MEAN CORPUSCULAR HGB CONC 33.3 g/dL (33.0-36.5); MEAN CORPUSCULAR VOLUME 91.1 FL (78-98); MEAN PLATELET VOLUME 8.8 FL (7.4-10.4); MONOCYTES # (AUTO) 0.9 X10'3 (0-0.9); MONOCYTES % (AUTO) 11.8 % (2-12); NEUTROPHILS # (AUTO) 3.5 X10'3 (1.8-7.7); PLATELET COUNT 271 X10'3 (140-440); RED BLOOD COUNT 4.98 X10'6 (4.20-5.60); RED CELL DISTRIBUTION WIDTH 12.8 % (11.5-14.5); WHITE BLOOD COUNT 7.7 X10'3 (4.5-11.0)
[2023-10-24 06:02] LABS: ALANINE AMINOTRANSFERASE 63 U/L (12-78); ALBUMIN 2.5 G/DL (3.4-5.0); ALBUMIN/GLOBULIN RATIO 0.7 (1.1-1.5); ALKALINE PHOSPHATASE 110 IU/L (46-116); ANION GAP 9 (8-16); ASPARTATE AMINO TRANSFERASE 23 U/L (10-37); BILIRUBIN,TOTAL 0.6 MG/DL (0.1-1.0); BLOOD UREA NITROGEN 12 MG/DL (7-18); BUN/CREATININE RATIO 12.2 (10.0-20.0); CALCIUM 8.4 MG/DL (8.5-10.1); CHLORIDE 107 MMOL/L (99-107); CREATININE 0.98 MG/DL (0.40-0.90); GLUCOSE 108 MG/DL (70-104); POTASSIUM 4.1 MMOL/L (3.5-5.1); SODIUM 142 MMOL/L (135-145); TOTAL CARBON DIOXIDE 26.5 MMOL/L (24-32); TOTAL PROTEIN 5.9 G/DL (6.4-8.2); eCRCL 51 ML/MIN; eGFR 59 ML/MIN
[2023-10-24 07:00] VITALS: BP 91/59; PULSE 69; RESP 16; TEMP 97.4; O2SAT 100
[2023-10-24 07:02] VITALS: BP 97/57; PULSE 69; RESP 17; TEMP 97.4; O2SAT 99
[2023-10-24 08:00] VITALS: RESP 16; O2SAT 100
[2023-10-24] MEDS ORDERED: MESSAGE TO NURSING IV ONE (09:10)
[2023-10-24] MEDS ORDERED: COR3.125T PO (09:49)
[2023-10-24] MEDS ORDERED: ATOR20TA66 PO (09:49)
[2023-10-24] MEDS ORDERED: PANT40TA54 PO (09:49)
[2023-10-24] MEDS ORDERED: LISI5TAB22 PO (09:58)
[2023-10-24 10:13] VITALS: RESP 16
[2023-10-24] MEDS ORDERED: APIX5TAB3 PO (10:36)
== END 2023-10-24 12:53 | disposition home or self-care (01) | DRG 280 ==
LOC: ER 09:47 → ED HOLD 15:08 → PCU 3S 17:42
PROVIDERS: ADMIT Internal Medicine; ATTEND Internal Medicine
PROC: B32T1ZZ Computerized Tomography (CT Scan) of Left Pulmonary Artery using Low Osmolar Contrast (ICD-10-PCS; principal; 2023-10-21)
PROC: B3201ZZ Computerized Tomography (CT Scan) of Thoracic Aorta using Low Osmolar Contrast (ICD-10-PCS; 2023-10-21)
PROC: B32S1ZZ Computerized Tomography (CT Scan) of Right Pulmonary Artery using Low Osmolar Contrast (ICD-10-PCS; 2023-10-21)
DX: I82.442 Acute embolism and thrombosis of left tibial vein (principal); I26.09 Other pulmonary embolism with acute cor pulmonale; I21.A1 Myocardial infarction type 2; I50.21 Acute systolic (congestive) heart failure; I13.0 Hypertensive heart and chronic kidney disease with heart failure and stage 1 through stage 4 chronic kidney disease, or unspecified chronic kidney disease; R45.851 Suicidal ideations; Z66 Do not resuscitate; D72.829 Elevated white blood cell count, unspecified; F41.9 Anxiety disorder, unspecified; F12.10 Cannabis abuse, uncomplicated; N18.31 Chronic kidney disease, stage 3a; D72.828 Other elevated white blood cell count; E78.5 Hyperlipidemia, unspecified; G89.29 Other chronic pain; M54.50 Low back pain, unspecified; Z90.710 Acquired absence of both cervix and uterus; Z87.891 Personal history of nicotine dependence; Z79.899 Other long term (current) drug therapy
CPT/HCPCS: 36415; 71045; 71275; 80048; 80053; 80061; 80305; 83036; 83605; 83880; 84443; 84484; 85025; 85730; 87040; 87081; 93005; 93306; 93971; 94664; 94760; 96374; 96375; 97116; 97161; 97530; 99291; A4615; G0378; J1644; J2060; J2270; J3490; J7030; Q9967